=== PATIENT | male | born 1950 | race Caucasian/White ===

== ENCOUNTER 2020-10-11 23:33 | Emergency (ER) | payer MEDICAID, OTHER ==
[~2020-10-11] VITALS: Ht 182.9 cm; Wt 79.4 kg
[~2020-10-11 23:33] MED LIST: TRAM100T34 PO
--- NOTE | 2020-10-11 23:40 | NUR ---
BIBRA 881 FOR C/O L FLANK PAIN RADIATING TO LOWER ABD. PMH OF RENAL STONE REC'D 3 TABLETS OF NORCO 5MG @ 1100, - DYSURIA
[2020-10-11] MEDS ORDERED: KETOROLAC TROMETHAMINE 15 MG/ML VIAL ONE (23:57)
[2020-10-12] LABS: BASOPHILS # (AUTO) 0.1 /CMM (0.0-0.2); BASOPHILS % (AUTO) 1.3 % (0.0-2.0); HEMATOCRIT 51 % (39-51); HEMOGLOBIN 16.9 g/dL (13.5-17.5); LYMPHOCYTES # (AUTO) 0.3 /CMM (0.8-4.8); MEAN CORPUSCULAR HGB CONC 33 g/dl (31.0-36.0); MEAN CORPUSCULAR VOLUME 95 fL (80-96); MONOCYTES # (AUTO) 0.5 /CMM (0.1-1.30); MONOCYTES % (AUTO) 4.5 % (2.0-12.0); NEUTROPHILS # (AUTO) 9.6 /CMM (1.8-8.9); NEUTROPHILS % (AUTO) 91.2 % (43.0-81.0); PLATELET COUNT (AUTO) 188 /CMM (150-450); RED BLOOD CELL COUNT(AUTO) 5.35 MIL/uL (4.5-6.0); WHITE BLOOD COUNT (AUTO) 10.5 K/uL (4.3-11.0)
[2020-10-12] MEDS: KETOROLAC TROMETHAMINE INJ 30 MG/ML VIAL IV ONE (00:01)
--- NOTE | 2020-10-12 00:02 | NUR ---
URINE COLLECTED, SENT TO LAB.
[2020-10-12 00:06] LABS: BILIRUBIN,URINE Negative (NEGATIVE); COLOR,URINE YELLOW (YELLOW); LEUKOCYTE ESTERASE ,URINE Trace (NEGATIVE); NITRITE, URINE Negative (NEGATIVE); PH,URINE 6.5 (5.0-8.0); PROTEIN,URINE Negative (NEGATIVE); UGLUCOSE Negative (NEGATIVE); UROBILINOGEN,URINE 0.2 EU/dL (0.2)
[2020-10-12 00:06] LABS: CALCIUM, SERUM 9.6 mg/dL (8.5-10.1); CARBON DIOXIDE 26 mmol/L (21-32); CHLORIDE 99 mmol/L (98-107); CREATININE 1.7 mg/dL (0.6-1.3); GLUCOSE 115 mg/dL (74-106); POTASSIUM 4.3 mmol/L (3.5-5.1); SODIUM SERUM 135 mmol/L (136-145); UREA NITROGEN, BLOOD 17 mg/dL (7-18)
[2020-10-12 00:12] LABS: ALANINE AMINOTRANSFERASE 36 U/L (12-78); ALBUMIN 4.2 g/dL (3.4-5.0); ALKALINE PHOSPHATASE 85 U/L (46-116); ASPARTATE AMINOTRANSFERASE 24 U/L (15-37); BILIRUBIN,DIRECT 0.4 mg/dL (0.0-0.2); BILIRUBIN,TOTAL 2.3 mg/dL (0.2-1.0); LIPASE 86 U/L (73-393); TOTAL PROTEIN, SERUM 8.4 g/dL (6.4-8.2)
[2020-10-12] MEDS ORDERED: IV NS 0.9% 250 ML IV ONE (00:19)
[2020-10-12] MEDS ORDERED: IOHEXOL-300 100 ML VIAL IV ONE (00:19)
[2020-10-12] MEDS ORDERED: CT SWABBABLE VALVE TRANS SET 1 EA INFUS.SET MC ONE (00:19)
[2020-10-12 00:36] LABS: BACTERIA,URINE Few /HPF (None Seen); SQUAMOUS EPITHELIAL CELL,UR Few /HPF (None Seen)
[2020-10-12] MEDS: IV NS 0.9% 500 ML BAG IV ONE (01:00)
--- NOTE | 2020-10-12 01:35 | NUR ---
at the bed side
[2020-10-12 01:51] VITALS: BP 123/76
--- NOTE | 2020-10-12 01:51 | NUR ---
Patient discharged to home in stable condition. Written and verbal after care instructions given. Patient verbalizes understanding of instruction.
--- NOTE | 2020-10-12 01:51 | NUR ---
IV removed. Catheter intact and site benign. Pressure and 4x4 applied to site. No bleeding noted.
== END 2020-10-12 01:52 | disposition home or self-care (01) ==
LOC: ER 23:33
DX: N13.2 Hydronephrosis with renal and ureteral calculous obstruction (principal); I72.3 Aneurysm of iliac artery; Z79.899 Other long term (current) drug therapy
CPT/HCPCS: 36415; 74177; 80048; 80076; 81001; 83690; 85025; 96361; 96374; 99285; J1885; J7030; J7050; Q9967